=== PATIENT | female | born 1950 | race Caucasian/White ===

== ENCOUNTER 2020-04-22 17:50 | Inpatient (IN) | payer MEDICARE, OTHER ==
[~2020-04-22] VITALS: Ht 162.6 cm; Wt 64.9 kg
[2020-04-22] MEDS ORDERED: ZOLP6.252 PO (18:13)
[2020-04-22] MEDS ORDERED: ASPI-1169 PO (18:13)
[2020-04-22] MEDS ORDERED: HYDROCODONE/APAP 5/325MG TABLET ONE (18:29)
[2020-04-22] MEDS ORDERED: HYDROCODONE/APAP 5/325MG TABLET PO ONE (18:30)
[2020-04-22 18:46] LABS: BASOPHILS # (AUTO) 0.1 /CMM (0.0-0.2); EOSINOPHILS % (AUTO) 0.8 % (0.0-6.0); HEMATOCRIT 38 % (33-45); HEMOGLOBIN 12.8 g/dL (11.5-14.8); LYMPHOCYTES # (AUTO) 1.5 /CMM (0.8-4.8); LYMPHOCYTES % (AUTO) 20.7 % (20.0-44.0); MEAN CORPUSCULAR HGB CONC 34 g/dl (31.0-36.0); MEAN CORPUSCULAR VOLUME 97 fL (82-100); MONOCYTES # (AUTO) 0.7 /CMM (0.1-1.30); MONOCYTES % (AUTO) 9.4 % (2.0-12.0); NEUTROPHILS # (AUTO) 4.8 /CMM (1.8-8.9); NEUTROPHILS % (AUTO) 68.1 % (43.0-81.0); PLATELET COUNT (AUTO) 325 /CMM (150-450); RED BLOOD CELL COUNT(AUTO) 3.86 MIL/uL (4.0-5.2); WHITE BLOOD COUNT (AUTO) 7.1 K/uL (4.3-11.0)
[2020-04-22 18:55] LABS: ALANINE AMINOTRANSFERASE 26 U/L (12-78); ALBUMIN 3.2 g/dL (3.4-5.0); ALKALINE PHOSPHATASE 61 U/L (46-116); ASPARTATE AMINOTRANSFERASE 32 U/L (15-37); BILIRUBIN,DIRECT 0.1 mg/dL (0.0-0.2); BILIRUBIN,TOTAL 0.2 mg/dL (0.2-1.0); CALCIUM, SERUM 8.5 mg/dL (8.5-10.1); CARBON DIOXIDE 24 mmol/L (21-32); CHLORIDE 105 mmol/L (98-107); CREATININE 0.8 mg/dL (0.6-1.3); GLUCOSE 114 mg/dL (74-106); POTASSIUM 2.9 mmol/L (3.5-5.1); SODIUM SERUM 140 mmol/L (136-145); TOTAL PROTEIN, SERUM 6.4 g/dL (6.4-8.2); UREA NITROGEN, BLOOD 15 mg/dL (7-18)
--- NOTE | 2020-04-22 19:00 | NUR ---
report rec'd from samir hernandez, assumed care of patient at this time
--- NOTE | 2020-04-22 19:01 | NUR ---
, from home, c/o left shoulder pain and lac at the back of her head s/p fall going up the stairs, -ko 8/10 pain scale; pt placed on monitor, not in acute distress, -sob, -cp. vss.
[2020-04-22] MEDS ORDERED: ONDANSETRON HCL/PF 4 MG/2 ML VIAL IVP ONE (19:30)
[2020-04-22] MEDS ORDERED: MORPHINE SULFATE INJ 2 MG/ML DISP.SYRIN IV ONE (19:30)
--- NOTE | 2020-04-22 19:32 | NUR ---
panel paged per Dr. Streeter Order
--- NOTE | 2020-04-22 19:35 | NUR ---
dr mg on the phone with [facility] website optimization strategist- slade urrutia
[2020-04-22] MEDS ORDERED: MORPHINE SULFATE INJ 4 MG/ML DISP.SYRIN ONE (19:40)
[2020-04-22] MEDS ORDERED: ONDANSETRON HCL/PF 4 MG/2 ML VIAL ONE (19:40)
--- NOTE | 2020-04-22 19:57 | NUR ---
covid neg per lab
--- NOTE | 2020-04-22 20:06 | NUR ---
SPOKE WITH NURSING SUP, GAVE [phone]
[2020-04-22 20:30] VITALS: BP 99/68
[2020-04-22 20:30] LABS: APPEARANCE,URINE CLEAR (CLEAR); BILIRUBIN,URINE NEGATIVE (NEGATIVE); BLOOD, URINE NEGATIVE Ery/uL (NEGATIVE); COLOR,URINE YELLOW (YELLOW); KETONES,URINE NEGATIVE (NEGATIVE); LEUKOCYTE ESTERASE ,URINE NEGATIVE (NEGATIVE); NITRITE, URINE NEGATIVE (NEGATIVE); PROTEIN,URINE NEGATIVE (NEGATIVE); UGLUCOSE NEGATIVE (NEGATIVE); UROBILINOGEN,URINE 0.2 EU/dL (0.2)
[2020-04-22] MEDS ORDERED: ACETAMINOPHEN 325 MG TABLET PO PRN (20:30)
[2020-04-22] MEDS ORDERED: MAG HYDROX/AL HYDROX/SIMETH 30 ML UDC PO PRN (20:30)
[2020-04-22] MEDS ORDERED: MAGNESIUM HYDROXIDE 30 ML UDC PO PRN (20:30)
[2020-04-22] MEDS ORDERED: Z GUARD REMEDY 2 OZ OINT TP PRN (20:30)
--- NOTE | 2020-04-22 20:38 | NUR ---
pt transported to 3rd floor
--- NOTE | 2020-04-22 20:45 | NUR ---
ALUMNI COORDINATOR NOTE: RECEIVED PATIENT FROM ER, NO ACUTE DISTRESS NOTED. BREATHING EVEN AND UNLABORED, NO SOB NOTED. IV TO RFA IN PLACE. LEFT ARM IN SLING. HEAD WRAPPED WITH KERLIX WITH LACERATION TO BACK OF HEAD. ORIENTED PATIENT TO ROOM AND USE OF CALL LIGHT. BED LOCKED AND IN LOWEST POSITION, CALL LIGHT IN REACH. WILL CONTINUE TO MONITOR.
[2020-04-22] MEDS: POTASSIUM CL. PREMIX PERIPHER. 50 ML IV SCH ×2 (21:46→23:45)
[2020-04-22] MEDS: IV NS 0.9% 1,000 ML IV PRN (21:46)
[2020-04-22] MEDS: HYDROMORPHONE INJ 2 MG/ML DISP.SYRIN IV PRN (22:34)
--- NOTE | 2020-04-22 22:35 | NUR ---
YARD INSPECTOR NOTE: PATIENT COMPLAINS OF PAIN TO LEFT NECK/SHOULDER, DILAUDID 1MG IV GIVEN PER MD ORDER. WILL CONTINUE TO MONITOR.
[2020-04-23 00:15] VITALS: BP 101/71
[2020-04-23] MEDS: HYDROMORPHONE INJ 2 MG/ML DISP.SYRIN IV PRN ×3 (02:36→13:06)
--- NOTE | 2020-04-23 02:40 | NUR ---
FORGE HEATER NOTE: PATIENT COMPLAINS OF PAIN TO LEFT SHOULDER 9/10, DILAUDID 1MG IV GIVEN PER MD ORDER. WILL CONTINUE TO MONITOR.
[2020-04-23 04:30] VITALS: BP 131/84
--- NOTE | 2020-04-23 06:25 | NUR ---
LAND APPRAISER NOTE: PATIENT RESTING IN BED, NO ACUTE DISTRESS NOTED. BREATHING EVEN AND UNLABORED, NO SOB NOTED. IV TO RFA IN PLACE, INFUSING NS AT 95ML/HR. LEFT ARM IN SLING. BED LOCKED AND IN LOWEST POSITION, CALL LIGHT IN REACH. WILL ENDORSE TO DAY NURSE TO CONTINUE WITH PLAN OF CARE.
[2020-04-23] MEDS: ONDANSETRON HCL/PF 4 MG/2 ML VIAL IVP PRN ×2 (07:01→13:10)
[2020-04-23] MEDS: PANTOPRAZOLE 40 MG TABLET.DR PO SCH (07:30)
[2020-04-23 07:50] LABS: BASOPHILS % (AUTO) 0.3 % (0.0-2.0); EOSINOPHILS % (AUTO) 0.1 % (0.0-6.0); HEMATOCRIT 36 % (33-45); HEMOGLOBIN 12.4 g/dL (11.5-14.8); LYMPHOCYTES # (AUTO) 0.6 /CMM (0.8-4.8); LYMPHOCYTES % (AUTO) 7.5 % (20.0-44.0); MEAN CORPUSCULAR HGB CONC 34 g/dl (31.0-36.0); MEAN CORPUSCULAR VOLUME 98 fL (82-100); MONOCYTES # (AUTO) 0.7 /CMM (0.1-1.30); MONOCYTES % (AUTO) 8.3 % (2.0-12.0); NEUTROPHILS # (AUTO) 6.9 /CMM (1.8-8.9); NEUTROPHILS % (AUTO) 83.8 % (43.0-81.0); PLATELET COUNT (AUTO) 334 /CMM (150-450); RED BLOOD CELL COUNT(AUTO) 3.71 MIL/uL (4.0-5.2); WHITE BLOOD COUNT (AUTO) 8.2 K/uL (4.3-11.0)
[2020-04-23 08:00] VITALS: BP 128/91
[2020-04-23] MEDS: POTASSIUM CHLORIDE 20 MEQ TAB.PRT.SR PO SCH ×3 (08:00→10:00)
--- NOTE | 2020-04-23 08:00 | NUR ---
Report received from night RN. Patient alert, awake, and oriented x3. Able to make needs known. Patient ambulatory with assist. On telemetry monitoring. No signs and symptoms of distress. Patient with orders for NPO. Patient with c/o pain on left shoulder 04/26. PRN pain medication given as ordered. Re-assessed patient after 30 minutes, relief noted, no verbalization of pain, no facial grimacing or moaning noted. Needs anticipated and attended. Call light within reach.
--- NOTE | 2020-04-23 08:00 | NUR ---
WATCH AND CLOCK REPAIR CLERK AM NOTE: RECEIVED PATIENT SITTING IN BED WITH NO ACUTE DISTRESS NOTED. BREATHING EVEN AND UNLABORED, NO SOB NOTED. IVF NS INFUSING WELL AT 95 ML/HR TO RFA . LEFT ARM SLING IN PLACE. WITH LACERATION TO THE BACK OF HEAD DUE TO S/P FALL WITH NO BLEEDING NOTED. BED LOCKED AND IN LOWEST POSITION, CALL LIGHT WITHIN REACH. WILL CONTINUE TO MONITOR.
[2020-04-23 08:16] LABS: ALBUMIN 3.2 g/dL (3.4-5.0); BILIRUBIN,TOTAL 0.1 mg/dL (0.2-1.0); CALCIUM, SERUM 8.2 mg/dL (8.5-10.1); CREATININE 0.8 mg/dL (0.6-1.3); PHOSPHORUS 3.1 mg/dL (2.5-4.9); POTASSIUM 3.9 mmol/L (3.5-5.1); TOTAL PROTEIN, SERUM 6.3 g/dL (6.4-8.2)
[2020-04-23 08:38] LABS: IRON, SERUM 34 ug/dl (50-175); TOTAL IRON BINDING CAPACITY 409 ug/dl (250-450)
[2020-04-23] MEDS: ASPIRIN 81 MG TAB.CHEW PO SCH (09:00)
[2020-04-23 09:10] LABS: CHOLESTEROL 203 mg/dL (<200); FERRITIN 45 ng/mL (8-388); HDL CHOLESTEROL 95 mg/dL (40-60); LDL 71 mg/dL (0-99); THYROID STIMULATING HORMONE 4.252 uIU/mL (0.358-3.74); TRIGLYCERIDES 229 mg/dL (30-150)
--- NOTE | 2020-04-23 10:23 | NUR ---
WOUND CARE CONSULT: PT PRESENTS WITH CLOSED LACERATION TO POSTERIOR SCALP. NO DRAINAGE NOTED AT THIS TIME. PT IS INDEPENDENT WITH BED MOBILITY AND IS CONTINENT. WILL SEE PRN.
[2020-04-23] MEDS: IV NS 0.9% 1,000 ML IV PRN (11:20)
[2020-04-23] MEDS: POTASSIUM CL. PREMIX PERIPHER. 50 ML IV SCH ×2 (11:41→17:59)
[2020-04-23 13:36] VITALS: BP 131/84
[2020-04-23 16:00] VITALS: BP 143/86
[2020-04-23] MEDS ORDERED: diphenhydrAMINE HCL 50 MG/ML VIAL IV PRN (18:00)
--- NOTE | 2020-04-23 19:00 | NUR ---
PT RESTING IN BED DENYING ANY PAIN OR DISTRESS.NO C/O ITCHINESS.BENADRYL GIVEN WAS EFFECTIVE.NO RASHES NOTED EITHER.CALL LIGHT PLACED WITHIN REACH.
[2020-04-23 20:00] VITALS: BP 115/57
--- NOTE | 2020-04-23 20:00 | NUR ---
RN NOTES RECEIVED PT. AWAKE ON BED, A/OX3 WITH CONFUSION, AMBULATORY, SR ON TELE MONITOR HR-98, NOT IN DISTRESS, DENIES PAIN, CALL LIGHT WITHIN REACH, SIDERAILSUPX2, CONTINUE TO MONITOR
[2020-04-23] MEDS: HYDROCODONE/APAP 5/325MG TABLET PO PRN (21:58)
--- NOTE | 2020-04-23 22:00 | NUR ---
RN NOTES COMPLAINED OF LEFT SHOULDER PAIN, PAIN LEVEL 6/10, NORCO 5/325MG PO GIVEN ORDERED, V/S STABLE
[2020-04-23] MEDS: ZOLPIDEM TARTRATE 5 MG TABLET PO PRN (23:29)
--- NOTE | 2020-04-23 23:30 | NUR ---
RN NOTES PT. ASKED FOR SLEEPING PILL- AMBIEN 5MG PO GIVEN ORDERED
--- NOTE | 2020-04-24 04:00 | NUR ---
RN NOTES COMPLAINED OF LEFT SHOULDER PAIN- NORCO 1 TAB PO GIVEN ORDERED. V/S STABLE
[2020-04-24] MEDS: HYDROCODONE/APAP 5/325MG TABLET PO PRN ×4 (04:07→20:08)
--- NOTE | 2020-04-24 06:44 | NUR ---
RN NOTES AWAKE, NOT IN DISTRESS NO PAIN NOTED, MORNING CARE RENDERED, PT. NEEDS ATTENDED
[2020-04-24 07:37] LABS: BASOPHILS % (AUTO) 0.5 % (0.0-2.0); EOSINOPHILS % (AUTO) 0.6 % (0.0-6.0); HEMATOCRIT 40 % (33-45); HEMOGLOBIN 13.3 g/dL (11.5-14.8); LYMPHOCYTES # (AUTO) 1.3 /CMM (0.8-4.8); LYMPHOCYTES % (AUTO) 21.1 % (20.0-44.0); MEAN CORPUSCULAR HGB CONC 33 g/dl (31.0-36.0); MEAN CORPUSCULAR VOLUME 98 fL (82-100); MONOCYTES # (AUTO) 0.8 /CMM (0.1-1.30); NEUTROPHILS # (AUTO) 4.1 /CMM (1.8-8.9); NEUTROPHILS % (AUTO) 64.8 % (43.0-81.0); PLATELET COUNT (AUTO) 336 /CMM (150-450); RED BLOOD CELL COUNT(AUTO) 4.08 MIL/uL (4.0-5.2); WHITE BLOOD COUNT (AUTO) 6.3 K/uL (4.3-11.0)
[2020-04-24 08:00] VITALS: BP 158/81
--- NOTE | 2020-04-24 08:02 | NUR ---
Report received from night RN. Patient alert, awake and oriented x 3. No SOB noted. No s/s of distress or discomfort noted. Patient able to make needs known. Bed locked and in lowest position. Reminded to use call light for assistance, call light within reach.
[2020-04-24 08:05] LABS: ALANINE AMINOTRANSFERASE 22 U/L (12-78); ALBUMIN 3.4 g/dL (3.4-5.0); ALKALINE PHOSPHATASE 60 U/L (46-116); ASPARTATE AMINOTRANSFERASE 23 U/L (15-37); BILIRUBIN,TOTAL 0.4 mg/dL (0.2-1.0); CALCIUM, SERUM 9.1 mg/dL (8.5-10.1); CARBON DIOXIDE 25 mmol/L (21-32); CHLORIDE 103 mmol/L (98-107); CREATININE 0.7 mg/dL (0.6-1.3); GLUCOSE 100 mg/dL (74-106); MAGNESIUM 2.2 mg/dL (1.8-2.4); POTASSIUM 3.5 mmol/L (3.5-5.1); SODIUM SERUM 138 mmol/L (136-145); TOTAL PROTEIN, SERUM 6.8 g/dL (6.4-8.2); UREA NITROGEN, BLOOD 7 mg/dL (7-18)
--- NOTE | 2020-04-24 08:30 | NUR ---
Patient requested to disconnect IV. Patient informed of risks and benefits. Patient still requested to disconnect. Patient ambulatory and goes to the bathroom with assistance. Patient eats well, tolerating food and fluid intake well. Patient has been refusing to be reconnected to IV fluids. made aware.
[2020-04-24] MEDS: ASPIRIN 81 MG TAB.CHEW PO SCH (09:03)
[2020-04-24] MEDS: PANTOPRAZOLE 40 MG TABLET.DR PO SCH (09:03)
[2020-04-24] MEDS: NEUTRA PHOS 1 POWD.PACKET PO SCH ×2 (09:11→16:45)
[2020-04-24] MEDS ORDERED: HYDR-3972 PO (11:47)
[2020-04-24] MEDS: DOCUSATE SODIUM 100 MG CAPSULE PO SCH ×2 (12:51→16:45)
[2020-04-24 15:59] VITALS: BP 137/69
--- NOTE | 2020-04-24 17:40 | NUR ---
Patient alert, awake and oriented x 4. 09:05 Patient with c/o pain on left shoulder pain scale of 5/10, PRN Sibley given as ordered. Reassessed patient after an hour, pain reduced to 1/10. 12:00 Patient had lunch, tolerated well. Assisted with ADLs and transfers. No s/s of distress. At 13:42 Patient had c/o pain on left shoulder with pain scale 5/10, PRN Sibley given for pain as ordered. Reassessed after an hour, pain reduced to 1/10. Seen by pillowcase cutter today with plans for discharge tomorrow to [facility]. Patient had dinner, watched TV, able to tolerate treatment and care well. Bed locked and in lowest position. Reminded patient to use call light for assistance. Patient continuously monitored.
[2020-04-24 20:00] VITALS: BP_SYST 141; BP_DIAS 86; BP_DIAS 96
--- NOTE | 2020-04-24 20:55 | NUR ---
RN NOTES RECEIVED P[T. AWAKE ON BED, A/OX3, COMPLAINED OF LEFT SHOULDER PAIN- NORCO 5/325MG PO GIVEN ORDERED, V/S STABLE, NOT IN DISTRESS, NO PAIN NOTED, CALL LIGHT WITHIN REACH, SIDERAILSUPX2, CONTINUE TO MONITOR
[2020-04-24] MEDS: ZOLPIDEM TARTRATE 5 MG TABLET PO PRN (22:51)
[2020-04-25] MEDS: HYDROCODONE/APAP 5/325MG TABLET PO PRN (02:51)
--- NOTE | 2020-04-25 02:51 | NUR ---
RN NOTES COMPLAINED OF LEFT SHOULDER PAIN- NORCO 5/325MG PO GIVEN ORDERED,, V/S STABLE
--- NOTE | 2020-04-25 06:34 | NUR ---
RN NOTES AWAKE ,MORNING CARE RENDERED, NOT IN DISTRESS , SIDERAILS UPX2, PT. NEEDS ATTENDED
[2020-04-25] MEDS: DOCUSATE SODIUM 100 MG CAPSULE PO SCH (07:57)
[2020-04-25] MEDS: ASPIRIN 81 MG TAB.CHEW PO SCH (07:58)
[2020-04-25] MEDS: PANTOPRAZOLE 40 MG TABLET.DR PO SCH (07:58)
[2020-04-25 08:00] VITALS: BP 125/70
--- NOTE | 2020-04-25 08:00 | NUR ---
RN PERIOPERATIVE AM NOTE: RECEIVED PATIENT SITTING IN BED WITH NO ACUTE DISTRESS NOTED. BREATHING EVEN AND UNLABORED, NO SOB NOTED. REFUSED IVF SAYING SHE DRINKS A LOT OF FLUIDS ANYWAY. WITH LEFT ARM SLING IN PLACE. WITH LACERATION TO THE BACK OF HEAD DUE TO S/P FALL WITH NO BLEEDING NOTED. BED LOCKED AND IN LOWEST POSITION, CALL LIGHT WITHIN REACH. WILL CONTINUE TO MONITOR.
--- NOTE | 2020-04-25 10:30 | NUR ---
DISCHARGE PT TO [facility] VIA AMBULANCE WITH STABLE V/S. DISCHARGE INSTRUCTIONS AND PRESCRIPTION GIVEN TO THE PT.IV H/L REMOVED TO RFA WITH NO BLEEDING OR SWELLING NOTED ON THE SITE. SCALP LACERATION IS NOT BLEEDING AND NO S/SF INFECTION.DENIES ANY PAIN OR DIZZINESS.REPORT CALLED IN TO MEKHI KIRKPATRICK MANAGER [employer]IAL WORK OF [facility].PT WILL BE IN ROOM 7. NOTIFIED PT'S NEPHEW,LISETTE DOMINGUEZ.
== END 2020-04-25 10:25 | DRG 74 ==
LOC: ER 17:55 → TELE 20:20 → MED 04-24 10:34
PROVIDERS: ADMIT Nurse Practitioner Acute Care; ATTEND Nurse Practitioner Acute Care
DX: G90.8 Other disorders of autonomic nervous system (principal); E44.0 Moderate protein-calorie malnutrition; M84.412 Pathological fracture, left shoulder; E87.6 Hypokalemia; W10.9XXA Fall (on) (from) unspecified stairs and steps, initial encounter; E88.09 Other disorders of plasma-protein metabolism, not elsewhere classified; S01.01XA Laceration without foreign body of scalp, initial encounter; Y93.9 Activity, unspecified; Y92.009 Unspecified place in unspecified non-institutional (private) residence as the place of occurrence of the external cause; Z68.24 Body mass index [BMI] 24.0-24.9, adult
CPT/HCPCS: 36415; 70450-TC; 71045-TC; 73030-TC; 80048-TC; 80053-TC; 80061-TC; 80076-TC; 81000-TC; 82728-TC; 83540-TC; 83735-TC; 84100-TC; 84439-TC; 84443-TC; 84484-TC; 85025-TC; 87081-TC; 93307-TC; 97110-TC; 97116-TC; 97530-TC; A6403; C9803-CS; G0378; J1170; J1200; J2270; J2405; J3480; J7030

== ENCOUNTER 2020-05-06 11:00 | Outpatient (CLI) | payer MEDICARE, OTHER ==
[~2020-05-06 11:00] MED LIST: ASPI-1169 PO; HYDR-3972 PO; ZOLP6.252 PO
== END 2020-05-06 23:59 | disposition home or self-care (01) ==
LOC: CL 11:00
PROVIDERS: ATTEND Student in an Organized Health Care Education/Training Program
DX: Z01.812 Encounter for preprocedural laboratory examination (principal); Z20.828 Contact with and (suspected) exposure to other viral communicable diseases
CPT/HCPCS: 87426; C9803 ×2; U0003

== ENCOUNTER 2020-05-09 09:58 | Day surgery (SDC) | payer MEDICARE, OTHER ==
[~2020-05-09 09:58] MED LIST changes: +GLYCOPYRROLATE 0.2 MG/ML VIAL ONE; +NEOSTIGMINE ONE; +ONDANSETRON HCL/PF - ER 4 MG/2 ML VIAL ONE; +PROPOFOL 200 MG/20 ML VIAL IV ONE
[2020-05-09] MEDS ORDERED: BUPIVACAINE 0.5 % PF 150 MG/30 ML VIAL ONE ×2 (10:08→11:07)
[2020-05-09] MEDS ORDERED: ANESTHESIA TRAY IN PYXIS 1 EA TRAY MC ONE ×2 (10:08→11:07)
[2020-05-09] MEDS ORDERED: BACITRACIN ZINC OINT (15 GM) 15 GM TUBE TP ONE (10:09)
[2020-05-09] MEDS ORDERED: BACITRACIN 50000 UNITS/VIAL ONE (10:09)
[2020-05-09] MEDS ORDERED: LIDOCAINE 1% INJ 50 ML MDV IJ ONE (11:07)
[2020-05-09] MEDS ORDERED: EPINEPHRINE (1:1000) 1 MG/ML AMPUL ONE (11:08)
[2020-05-09] MEDS ORDERED: BUPIVACAINE 0.25% 75 MG/30 ML VIAL ONE ×2 (11:09→11:44)
[2020-05-09] MEDS ORDERED: FENTANYL PF 250MCG/5ML AMPUL ONE (11:43)
[2020-05-09] MEDS ORDERED: MIDAZOLAM HCL 2 MG/2ML VIAL ONE (11:43)
[2020-05-09] MEDS ORDERED: HYDROMORPHONE INJ 2 MG/ML DISP.SYRIN ONE (12:18)
[2020-05-09] MEDS ORDERED: ONDANSETRON HCL/PF 4 MG/2 ML VIAL ONE (15:34)
[2020-05-09] MEDS ORDERED: ONDANSETRON 4 MG TAB.RAPDIS ONE (16:26)
== END 2020-05-09 16:40 | disposition home or self-care (01) ==
LOC: DS 09:58
PROVIDERS: ATTEND Student in an Organized Health Care Education/Training Program
DX: S42.022A Displaced fracture of shaft of left clavicle, initial encounter for closed fracture (principal); Z88.1 Allergy status to other antibiotic agents; E78.5 Hyperlipidemia, unspecified; Z79.899 Other long term (current) drug therapy; X58.XXXA Exposure to other specified factors, initial encounter; Y93.89 Activity, other specified; Y92.89 Other specified places as the place of occurrence of the external cause; Y99.8 Other external cause status
CPT/HCPCS: 23515; 36415; 73000; 86850; A4565; A6209; A6402; C1713 ×5; C1769; J0690; J1170; J2250; J2405 ×3; J2704 ×2; J2710; J2765; J3010; J3490 ×5; Q0162; J0171

== ENCOUNTER 2020-06-03 12:47 | Inpatient (IN) | payer MEDICARE, OTHER ==
[~2020-06-03] VITALS: Ht 162.6 cm; Wt 61.3 kg
[2020-06-03] VITALS (7 sets, daily range): BP systolic 110–136; BP diastolic 51–86
[~2020-06-03 12:47] MED LIST changes: -GLYCOPYRROLATE 0.2 MG/ML VIAL ONE; -NEOSTIGMINE ONE; -ONDANSETRON HCL/PF - ER 4 MG/2 ML VIAL ONE; -PROPOFOL 200 MG/20 ML VIAL IV ONE
[2020-06-03] MEDS ORDERED: TDAP [DIPH/PERTUSSIS/TET] 0.5 ML VIAL IM ONE ×2 (13:00→13:52)
--- NOTE | 2020-06-03 13:00 | NUR ---
pt [id number], NEIGHBOR CALLED, S/P SYNCOPAL EPISODE, PT DOESN'T RECALL THE FALL, + FOR FACILA LACERATION ON THE BRIDGE OF THE NOSE AND R FA SKIN TEAR. VS CHECKED. WOUND CLEANED. SEEN BY
[2020-06-03] MEDS ORDERED: LIDOCAINE 2%-EPI 1:100,000 30 ML VIAL ONE (14:08)
--- NOTE | 2020-06-03 14:25 | NUR ---
DR. HYDE BY BEDSIDE.
--- NOTE | 2020-06-03 14:42 | NUR ---
[facility] CALLED PRODUCTION SUPPORT ENGINEER PAGED.
--- NOTE | 2020-06-03 14:44 | NUR ---
MOVE SHEET SUBMITTED AND CALLED FOR TELE BED.
[2020-06-03] MEDS ORDERED: ZOLP12.542 PO (14:56)
[2020-06-03] MEDS ORDERED: ATOR10TA PO (14:56)
[2020-06-03] MEDS ORDERED: MAG HYDROX/AL HYDROX/SIMETH 30 ML UDC PO PRN (15:30)
[2020-06-03] MEDS ORDERED: MAGNESIUM HYDROXIDE 30 ML UDC PO PRN (15:30)
[2020-06-03] MEDS ORDERED: Z GUARD REMEDY 2 OZ OINT TP PRN (15:30)
[2020-06-03] MEDS ORDERED: ONDANSETRON HCL/PF 4 MG/2 ML VIAL IVP PRN (15:30)
[2020-06-03 16:03] LABS: BASOPHILS # (AUTO) 0.1 /CMM (0.0-0.2); EOSINOPHILS % (AUTO) 0.7 % (0.0-6.0); HEMATOCRIT 41 % (33-45); HEMOGLOBIN 13.3 g/dL (11.5-14.8); LYMPHOCYTES # (AUTO) 1.1 /CMM (0.8-4.8); LYMPHOCYTES % (AUTO) 14.9 % (20.0-44.0); MEAN CORPUSCULAR HGB CONC 32 g/dl (31.0-36.0); MEAN CORPUSCULAR VOLUME 98 fL (82-100); MONOCYTES # (AUTO) 0.6 /CMM (0.1-1.30); MONOCYTES % (AUTO) 8.4 % (2.0-12.0); NEUTROPHILS # (AUTO) 5.3 /CMM (1.8-8.9); PLATELET COUNT (AUTO) 252 /CMM (150-450); RED BLOOD CELL COUNT(AUTO) 4.22 MIL/uL (4.0-5.2); WHITE BLOOD COUNT (AUTO) 7.1 K/uL (4.3-11.0)
--- NOTE | 2020-06-03 16:10 | NUR ---
Patient will go to ICU 256
[2020-06-03 16:12] LABS: CALCIUM, SERUM 9.2 mg/dL (8.5-10.1); CREATININE 0.8 mg/dL (0.6-1.3); POTASSIUM 3.7 mmol/L (3.5-5.1)
--- NOTE | 2020-06-03 16:56 | NUR ---
REPORT GIVE TO TATY GAMING AT ICU,
--- NOTE | 2020-06-03 17:08 | NUR ---
PT ARRIVED IN ICU AT 1708 TO ROOM 256. PT ALERT, OX3. FACIAL BRUISING AND SUTURES NOTED ON BRIDGE OF NOSE AND RIGHT FOREARM. PT INSTRUCTED TO PUSH CALL LIGHT IF SHE NEEDS TO USE THE BEDSIDE COMMODE AND NOT GET UP ON HER OWN, PT STATED UNDERSTANDING. NEURO INTACT, NO DEFICITS NOTED.
[2020-06-03] MEDS: HYDROCODONE/APAP 5/325MG TABLET PO PRN ×2 (17:42→22:20)
[2020-06-03] MEDS ORDERED: LORAZEPAM 1 MG TABLET PO PRN (19:00)
--- NOTE | 2020-06-03 19:00 | NUR ---
Received patient awake,alert,coherent and appropriate, no neuro deficit,no weakness,moves all extremities.Not in any distress.Multiple/diffuse facial bruising,nasal laceration and right elbow laceration. Will closely monitor neuro status.Complains of soreness /pain right arm and face.Comfort care done ,needs attended.
--- NOTE | 2020-06-03 19:30 | NUR ---
END OF SHIFT NOTE: NO CHANGES SINCE ADMISSION. NO NEURO DEFICITS NOTED. PT ALERT OX3, FOLLOWS COMMANDS. ATE 100% OF DINNER WITHOUT DIFFICULTY. PT CHECKED ON HOURLY AND PRN BY NURSING STAFF.
--- NOTE | 2020-06-03 22:00 | NUR ---
Stable neuro status,awake,alert,denies any headache, c/o pain and soreness of face ,arms.Able to get OOB with minimal assistance ,no dizziness nor fainting event.
[2020-06-04] VITALS (15 sets, daily range): BP systolic 105–144; BP diastolic 70–91
--- NOTE | 2020-06-04 | NUR ---
Remains stable ,awake,alert, no neuro deficit,denieas any head ache.
[2020-06-04] MEDS: HYDROCODONE/APAP 5/325MG TABLET PO PRN ×4 (02:16→17:58)
--- NOTE | 2020-06-04 04:00 | NUR ---
No change in status ,remains stable neurologically ,denies any headache.
[2020-06-04 04:22] LABS: BASOPHILS # (AUTO) 0.1 /CMM (0.0-0.2); BASOPHILS % (AUTO) 1.8 % (0.0-2.0); EOSINOPHILS % (AUTO) 1.1 % (0.0-6.0); HEMATOCRIT 34 % (33-45); HEMOGLOBIN 11.5 g/dL (11.5-14.8); LYMPHOCYTES # (AUTO) 1.3 /CMM (0.8-4.8); LYMPHOCYTES % (AUTO) 18.1 % (20.0-44.0); MEAN CORPUSCULAR HGB CONC 34 g/dl (31.0-36.0); MEAN CORPUSCULAR VOLUME 96 fL (82-100); MONOCYTES # (AUTO) 0.9 /CMM (0.1-1.30); MONOCYTES % (AUTO) 12.2 % (2.0-12.0); NEUTROPHILS # (AUTO) 4.8 /CMM (1.8-8.9); NEUTROPHILS % (AUTO) 66.8 % (43.0-81.0); PLATELET COUNT (AUTO) 222 /CMM (150-450); RED BLOOD CELL COUNT(AUTO) 3.56 MIL/uL (4.0-5.2); WHITE BLOOD COUNT (AUTO) 7.2 K/uL (4.3-11.0)
[2020-06-04 04:28] LABS: CALCIUM, SERUM 8.7 mg/dL (8.5-10.1); CREATININE 0.7 mg/dL (0.6-1.3); POTASSIUM 3.5 mmol/L (3.5-5.1)
--- NOTE | 2020-06-04 06:00 | NUR ---
Stable all night ,no neuro deficit,no head ache , no dizziness/no weakness.Just c/o soreness,pain of face,nose and arms.
--- NOTE | 2020-06-04 07:00 | NUR ---
Report given to Mayte GAMING
--- NOTE | 2020-06-04 07:30 | NUR ---
ICU/RN INITIAL NOTES,AM RECEIVED REPORT FROM [facility] NURSE. PT ALERT, AWAKE, FOLLOWS COMMANDS. ON ROOM AIR, NO ACUTE DISTRESS NOTED. SINUS ON TELE. PT ASSESSED,NO NEUROLOGIC DEFICIT. FACIAL BRUISING AND SUTURES ASSESSED, CLEAN, DRY AND INTACT. PT AMBULATORY WITH ASSIST. ALL NEEDS WILL BE ATTENDED TO, SAFETY MEASURES TAKEN, BED IN LOW POSITION, SIDE RAILS UP, CALL LIGHT WITHIN REACH. WILL CONTINUE CARE.
--- NOTE | 2020-06-04 09:00 | NUR ---
ICU/RN: PER ORDERS HEAD CT DONE, RESULTS PENDING.
--- NOTE | 2020-06-04 10:48 | NUR ---
ICU/RN: HEAD CT RESULTS RELAYED TO . ORDERS RECEIVED FOR TELE DOWNGRADE. PT EVAL STILL PENDING.
[2020-06-04 11:24] LABS: BILIRUBIN,URINE NEGATIVE (NEGATIVE); BLOOD, URINE SMALL Ery/uL (NEGATIVE); COLOR,URINE YELLOW (YELLOW); LEUKOCYTE ESTERASE ,URINE SMALL (NEGATIVE); NITRITE, URINE NEGATIVE (NEGATIVE); PH,URINE 7.5 (5.0-8.0); PROTEIN,URINE NEGATIVE (NEGATIVE); UGLUCOSE NEGATIVE (NEGATIVE); UROBILINOGEN,URINE 0.2 EU/dL (0.2)
--- NOTE | 2020-06-04 11:40 | NUR ---
RN NOTES RECEIVED PT FROM ICU. REPORT GIVEN BY MADDIE GAMING. BROUGHT TO THE UNIT BY WHEELCHAIR. PT IN STABLE CONDITION. VS WNL. TEMP: 97.6, HR: 96, RR: 16, BP: 148/55. IV SITE L AC #20 INTACT, PATENT AND FLUSHED. AMBULATORY WITH BRP. STANDBY ASSIST. BRUISES ON THE FACE NOTED. LACERATION IN THE NOSE AND R ELBOW NOTED. KEPT CLEAN AND DRY. SKIN IS INTACT. REGULAR DIET. PLACED IN BED. BED LOCKED AND AT LOWEST POSITION. CALL LIGHT WITHIN REACH. WILL CONTINUE TO MONITOR
--- NOTE | 2020-06-04 11:45 | NUR ---
ICU/RN: PT TRANSFERRED TO ROOM 112-1 WITH ACLS GUIDELINES. ALL BELONGS TRANSFERRED WITH PT. BEDSIDE REPORT ENDORSED TO MEKHI KRISHNAMURTHY RN. ALL NEEDS ATTENDED TO. BED IN LOW POSITION, SIDE RAILS UP,CALL LIGHT WITHIN REACH. INSTRUCTED PT TO CALL WHEN NEEDS TO GET OUT OF BED.
[2020-06-04 12:10] LABS: BACTERIA,URINE Few /HPF (None Seen); RBC,URINE 0-2 /HPF (0-2); SQUAMOUS EPITHELIAL CELL,UR Moderate /HPF (None Seen); WBC,URINE 0-2 /HPF (0-3)
--- NOTE | 2020-06-04 17:05 | NUR ---
RN NOTES REPORT GIVEN TO JAYCE GAMING FOR FLORENCIO
--- NOTE | 2020-06-04 18:36 | NUR ---
SENIOR PASTOR CLOSING NOTES PT REMAINS ALERT AND ORIENTED X4. NOT IN ANY ACUTE DISTRESS. IV SITE L AC #20 INTACT, PATENT AND FLUSHED. AMBULATORY WITH BRP. STANDBY ASSIST. BRUISES ON THE FACE NOTED. LACERATION IN THE NOSE AND R ELBOW NOTED. KEPT CLEAN AND DRY. SKIN IS INTACT. REGULAR DIET. PLACED IN BED. BED LOCKED AND AT LOWEST POSITION. BED ALARM KEPT ON FOR SAFETY. INSTRUCTIONS PROVIDED TO PT TO CALL FOR ASSISTANCE NEEDED. CALL LIGHT WITHIN REACH. WILL ENDORSE TO NEXT SHIFT FOR FLORENCIO
--- NOTE | 2020-06-04 19:21 | NUR ---
RN NOTE PT IS ALERT AND ORIENTED X 4. DENIES PAIN OR DISCOMFORT. ASSISTED TO BATHROOM WITH STAND BY ASSIST. IV LINE FLUSHED AND PATENT. ON ROOM AIR AND WITHOUT SIGNS OF DISTRESS. PT STATES THAT SHE TAKES AMBIEN EVERY NIGHT FOR SLEEP, NOTIFIED LATOSHA BUSTAMANTE RESAW CARRIAGE OPERATOR WITH ORDER TO START AMBIEN 5MG 1 TAB PO QHS PRN FOR SLEEP. ORDER NOTED AND CARRIED OUT.
[2020-06-04] MEDS: ACETAMINOPHEN 325 MG TABLET PO PRN (22:00)
[2020-06-04] MEDS ORDERED: ZOLPIDEM TARTRATE 5 MG TABLET PO PRN (22:00)
--- NOTE | 2020-06-04 22:40 | NUR ---
RN NOTE REPORT GIVEN TO AMANUEL GAMING FOR FLORENCIO. Addendum: 06/04/20 at 2338 by EMERY MORALES RN RECEIVED PT FROM AMANUEL FOR FLORENCIO.
[2020-06-05] VITALS: BP 129/78
[2020-06-05] MEDS: HYDROCODONE/APAP 5/325MG TABLET PO PRN ×2 (01:28→08:29)
--- NOTE | 2020-06-05 02:03 | NUR ---
RN NOTE RECEIVED PT FROM EMERY FOR FLORENCIO. PT IS IN STABLE CONDITION.
[2020-06-05 04:00] VITALS: BP 117/62
[2020-06-05] MEDS: ACETAMINOPHEN 325 MG TABLET PO PRN (05:38)
--- NOTE | 2020-06-05 07:18 | NUR ---
RN NOTE PT REMAINED STABLE DURING MY SHIFT, REPORT GIVEN TO INCOMING SHIFT FOR FLORENCIO.
[2020-06-05 08:00] VITALS: BP 123/82
--- NOTE | 2020-06-05 08:16 | NUR ---
BURRITO MAKER 1 RESIDENT IN BED, AWAKE VERBALLY RESPONDING, ALERT ORIENTED X 4, ABLE TO COMMUNICATE NEEDS, COMPLAINED OF PAIN 7/10 PAIN ON THE FACE AND ELBOW. WITH L AC PIV PATENT AND INTACT, FLUSHED. . WITH FACIAL BRUISING WITH STITCHES. NO SIGNS AND SYMPTOMS OF INFECTION. BED LOCK. BED AT LOWEST POSITION. SIDE RAILS UP X2 ALL SAFETY MEASURES IMPLEMENTED PER PROTOCOL. CALL LIGHT WITHIN REACH.
[2020-06-05 12:00] VITALS: BP 109/57
--- NOTE | 2020-06-05 13:30 | NUR ---
WORK CHECKER PATIENT DISCHARGE TO HOME, DISCHARGE INSTRUCTIONS GIVEN, VERBALIZES UNDERSTANDING. DISCONTINUED IV LINE LEFT AC, TOLERATED. BELONGINGS SIGNED BY PATIENT. PICTURES TAKEN FOR THE WOUND, PATIENT STATED SHE PREFER TO WALK TO THE CAR, TAKEN TO INSURANCE CLAIM REPRESENTATIVE CARE.
== END 2020-06-05 14:00 | disposition home or self-care (01) | DRG 86 ==
LOC: ER 13:00 → ICU 16:13 → TELE1 06-04 11:38
PROVIDERS: ADMIT Internal Medicine; ATTEND Internal Medicine
PROC: 0HQDXZZ Repair Right Lower Arm Skin, External Approach (ICD-10-PCS; principal; 2020-06-03)
PROC: 0HQ1XZZ Repair Face Skin, External Approach (ICD-10-PCS; 2020-06-03)
DX: S06.340A Traumatic hemorrhage of right cerebrum without loss of consciousness, initial encounter (principal); E87.0 Hyperosmolality and hypernatremia; S02.2XXA Fracture of nasal bones, initial encounter for closed fracture; S02.40DA Maxillary fracture, left side, initial encounter for closed fracture; R40.2142 Coma scale, eyes open, spontaneous, at arrival to emergency department; R40.2362 Coma scale, best motor response, obeys commands, at arrival to emergency department; R40.2252 Coma scale, best verbal response, oriented, at arrival to emergency department; E78.5 Hyperlipidemia, unspecified; W10.9XXA Fall (on) (from) unspecified stairs and steps, initial encounter; Y93.9 Activity, unspecified; S51.811A Laceration without foreign body of right forearm, initial encounter; Y92.009 Unspecified place in unspecified non-institutional (private) residence as the place of occurrence of the external cause; F10.129 Alcohol abuse with intoxication, unspecified; Y90.0 Blood alcohol level of less than 20 mg/100 ml; S00.83XA Contusion of other part of head, initial encounter
CPT/HCPCS: 36415; 70450-TC; 70486-TC; 71045-TC; 72125-TC; 80048-TC; 81001; 82962-TC; 85025-TC; 85730-TC; 87081-TC; 90715; 97116-TC; 97530-TC; A6403; G0378; G0480; J3490

== ENCOUNTER 2022-11-27 09:57 | Emergency (ER) | payer MEDICARE, BC ==
[~2022-11-27] VITALS: Ht 162.6 cm; Wt 58.1 kg
[~2022-11-27 09:57] MED LIST changes: +ATOR10TA PO; -HYDR-3972 PO; +ZOLP12.542 PO; -ZOLP6.252 PO
[2022-11-27] MEDS ORDERED: IV NS 0.9% 1,000 ML IV ONE (10:30)
--- NOTE | 2022-11-27 10:43 | NUR ---
PER Dr. SRINIVASAN NO NEED FOR CERVICAL COLLAR AT THIS TIME
--- NOTE | 2022-11-27 10:44 | NUR ---
PT BIB NEIGHBOR S/P TRIP AND FALL. PT AAOX3. PT DENIES LOC. PT DENIES BLOOD THINNER PT DENIES SOB, PT NOTED TO HAVE O2 SAT OF 89-91. ER MADE AWARE OF O2 SAT. PT
[2022-11-27] MEDS ORDERED: LIDOCAINE 1%-EPI 1:100,000 20 ML VIAL TP ONE (11:00)
[2022-11-27] MEDS ORDERED: LIDOCAINE 1%-EPI 1:100,000 20 ML VIAL ONE (11:47)
--- NOTE | 2022-11-27 11:55 | NUR ---
PT LACERATION IRRIGATED WITH STERILE NS. PT TOLERATED WELL
[2022-11-27] MEDS ORDERED: ACETAMINOPHEN ES 500 MG TABLET ONE (12:09)
[2022-11-27] MEDS ORDERED: ACETAMINOPHEN ES 500 MG TABLET PO ONE ×2 (12:30)
[2022-11-27 13:02] VITALS: BP 118/58
== END 2022-11-27 13:03 | disposition home or self-care (01) ==
LOC: ER 10:05
DX: S02.2XXA Fracture of nasal bones, initial encounter for closed fracture (principal); S01.81XA Laceration without foreign body of other part of head, initial encounter; R07.89 Other chest pain; Z88.8 Allergy status to other drugs, medicaments and biological substances; Z91.048 Other nonmedicinal substance allergy status; Z79.82 Long term (current) use of aspirin; Z79.899 Other long term (current) drug therapy; W10.9XXA Fall (on) (from) unspecified stairs and steps, initial encounter; Y93.89 Activity, other specified; Y92.89 Other specified places as the place of occurrence of the external cause; Y99.8 Other external cause status
CPT/HCPCS: 99284; 70450; 96360; 71045; 12013; 70486; J3490